=== PATIENT | female | born 1980 | race Caucasian/White ===

== ENCOUNTER 2017-07-21 04:48 | Emergency (ER) | payer MEDICAID ==
[~2017-07-21] VITALS: Ht 154.9 cm; Wt 73.0 kg
[2017-07-21] MEDS ORDERED: KETOROLAC 30MG/ML VIAL IV STA (06:32)
[2017-07-21 07:21] LABS: BASOPHILS % 0.5 % (0.0-2.0); EOSINOPHILS % 4.6 % (0.0-5.0); HEMATOCRIT. 39.1 % (36.0-48.0); HEMOGLOBIN. 13.2 g/dL (12.0-16.0); LYMPHOCYTES % 22.2 % (20.0-50.0); MEAN CORPUSCULAR HEMOGLOBIN 29.1 pg (28.0-32.0); MEAN CORPUSCULAR VOLUME 86.2 fL (81.0-99.0); MEAN PLATELET VOLUME 8.4 fl (7.4-10.4); MONOCYTES % 7.2 % (2.0-8.0); NEUTROPHILS % 65.5 % (40.0-76.0); PLATELET 235 x1000/uL (130-400); RED BLOOD CELL COUNT 4.53 mill/uL (4.2-5.4); RED CELL DISTRIBUTION WIDTH 13.5 % (11.6-14.6)
[2017-07-21 07:38] LABS: CARBON DIOXIDE 27 mEq/L (21-32); CHLORIDE 106 mEq/L (98-107); TROPONIN I < 0.02 ng/mL (0.00-0.04)
[2017-07-21 08:03] LABS: HCG SCREEN NEGATIVE
[2017-07-21 08:54] VITALS: BP 107/69
== END 2017-07-21 08:56 | disposition home or self-care (01) ==
LOC: ER 07:05
DX: R07.89 Other chest pain (principal); R06.02 Shortness of breath
CPT/HCPCS: 36415; 71045; 80053; 83690; 84484; 84703; 85025; 85379; 93005; 96374; 99285; J1885; Z7610

== ENCOUNTER 2018-08-22 00:10 | Emergency (ER) | payer SELFPAY ==
[~2018-08-22] VITALS: Ht 154.9 cm; Wt 78.0 kg
[2018-08-22] MEDS ORDERED: IPRATROPIUM BROMIDE (0.02%) 0.5MG/2.5ML NEB HHN STA (01:27)
[2018-08-22] MEDS ORDERED: PREDNISONE 20MG TABLET PO STA (01:27)
[2018-08-22] MEDS ORDERED: ALBUTEROL (0.083%) 2.5MG/3ML NEB HHN STA (01:27)
[2018-08-22 05:21] VITALS: BP 122/79
== END 2018-08-22 05:22 | disposition home or self-care (01) ==
LOC: ER 00:10
DX: J45.901 Unspecified asthma with (acute) exacerbation (principal)
CPT/HCPCS: 71045; 94640; 99283; J7512; J7611